=== PATIENT | female | born 1945 | race Hispanic/Latino ===

== ENCOUNTER 2017-05-04 16:47 | Emergency (ER) | payer MEDICARE ==
[2017-05-04 16:57] VITALS: BP 170/79; PULSE 88; RESP 18; TEMP 98.2; O2SAT 99
[2017-05-04] MEDS ORDERED: Lidocaine 1% w Epi 1:100,000 Inj INJ STA (17:09)
[2017-05-04] MEDS ORDERED: Lidocaine 2% w Epi 1:100,000 Inj IJ ONE (17:16)
--- NOTE | 2017-05-04 17:19 | ED PDOC ---
HPI: General Adult Time Seen by Provider: 05/04/17 17:00 Chief Complaint (Nursing): Abnormal Skin Integrity Chief Complaint (Provider): Laceration History Per: Patient History/Exam Limitations: no limitations Onset/Duration Of Symptoms: Hrs Current Symptoms Are (Timing): Still Present Additional Complaint(s): 71 y/o female presents to the emergency department with a laceration to left eyebrow region sustained when she fell onto the floor at home prior to arrival. Patient denies dizziness or syncope prior to fall and she did not sustain LOC as a result of fall. Patient does not take any blood thinners daily. She is not sure of last tetanus. PMD: Dr. Rajeev Godinez MD Past Medical History Reviewed: Historical Data, Nursing Documentation, Vital Signs Vital Signs: Last Vital Signs Temp 98.2 F 05/04/17 16:54 Pulse 88 05/04/17 16:54 Resp 18 05/04/17 16:54 BP 170/79 H 05/04/17 16:54 Pulse Ox 99 05/04/17 18:47 - Medical History PMH: No Chronic Diseases - Surgical History Other surgeries: hemicolectomy, lumpectomy x 2 from right breast, "others but I can't remember" - Family History Family History: States: No Known Family Hx - Living Arrangements Living Arrangements: With Family - Social History Current smoker - smoking cessation education provided: No Alcohol: Occasional (wine) Drugs: Denies - Immunization History Hx Tetanus Toxoid Vaccination: No (not sure of last booster) - Allergies Allergies/Adverse Reactions: Allergies Allergy/AdvReac Type Severity Reaction Status Date / Time Penicillins Allergy RASH Verified 05/04/17 16:58 Review of Systems ROS Statement: Except As Marked, All Systems Reviewed And Found Negative Skin: Positive for: Other (Laceration to the left eyebrow region) Neurological: Positive for: Other (denies dizziness or syncope prior to fall, denies LOC as result of fall) Physical Exam - Reviewed Nursing Documentation Reviewed: Yes Vital Signs Reviewed: Yes - Physical Exam Appears: Positive for: Well, Non-toxic, No Acute Distress Head Exam: Positive for: ATRAUMATIC, NORMAL INSPECTION, NORMOCEPHALIC Skin: Negative for: Rash Eye Exam: Positive for: Periorbital swelling (left), Periorbital tenderness ( left), Other (2 cm superficial laceration just inferior to left eyebrow with minimal active bleeding and moderate STS, slight ecchymosis noted to same area) Neck: Positive for: Normal, Painless ROM Cardiovascular/Chest: Positive for: Regular Rate, Rhythm Respiratory: Positive for: Normal Breath Sounds Neurologic/Psych: Positive for: Alert, wound nurse II-XII (grossly intact), Oriented (x3 ), Gait (steady). Negative for: Motor/Sensory Deficits, Aphasia, Facial Droop - ECG O2 Sat by Pulse Oximetry: 99 (RA) Pulse Ox Interpretation: Normal - Other Rad CT head and facial bones X-Ray: Read By Radiologist X-Ray Interpretation: see below Medical Decision Making Medical Decision Making: Time: 17:09 Initial Impression: 71 year old with head injury and facial laceration Initial Plan: --Lidocaine w/ Epi 10 ml INJ --Tetanus 0.5 ml IM --Lac repair. Patient agrees to lac repair by PA. She declined plastic surgery consult and is aware of potential for scarring. --Head CT --Maxillofacial w/o contrast CT Time: 18:32 --Head CT FINDINGS: Brain: Areas of decreased attenuation noted within the periventricular and subcortical white matter likely related to chronic microangiopathic ischemic changes given the patient's stated age.Streak artifact limits evaluation of the skull base. No evidence of acute intracranial hemorrhage. Correlate clinically. There is mild diffuse cerebral atrophy present , consistent with this patient's age.Subcutaneous soft tissue swelling/scalp hematoma is noted in the left supraorbital region. Ventricles: Unremarkable. No ventriculomegaly. Bones/joints: See above. Soft tissues: Unremarkable. Sinuses: Unremarkable as visualized. No acute sinusitis. Mastoid air cells: Unremarkable as visualized. No mastoid effusion. IMPRESSION: Streak artifact limits evaluation of the skull base. No evidence of acute intracranial hemorrhage. Correlate clinically. Subcutaneous soft tissue swelling/scalp hematoma is noted in the left supraorbital region. Facial bones CT: IMPRESSION: No acute facial bone fracture. Orbital wood are intact. Left periorbital soft tissue swelling. Mild left supraorbital soft tissue swelling. Patient aware of CT results. Wound care instructions given. Advised ice to affected area and Tylenol for pain as needed. Patient was instructed to follow up with her primary doctor in 1-2 days. Patient was given wound care instructions. Scribe Attestation: Documented by Raquel Guzmán, acting as a scribe for Enedina Cade PA-C. Provider Scribe Attestation: All medical record entries made by the Scribe were at my direction and personally dictated by me. I have reviewed the chart and agree that the record accurately reflects my personal performance of the history, physical exam, medical decision making, and the department course for this patient. I have also personally directed, reviewed, and agree with the discharge instructions and disposition. Procedures - Laceration/Wound Repair Left eyebrow region Wound Length (cm): 2 (to the left eyebrow region) Wound's Depth, Shape: superficial Wound Explored: clean Irrigated w/ Saline (ccs): 30 Betadine Prep?: Yes Anesthesia: Lidocaine w/ Epi Volume Anesthetic (ccs): 5 Wound Repaired With: Sutures Suture Size/Type: 5:0 (simple interrupted absorbable sutures) Number of Sutures: 3 Layer Closure?: No Wound Complexity: Simple Disposition - Clinical Impression Clinical Impression: Facial laceration, Head injury - Patient ED Disposition Is Patient to be Admitted: No Counseled Patient/Family Regarding: Studies Performed, Diagnosis, Need For Followup - Disposition Referrals: Rajeev Godinez MD [Staff Provider] - Disposition: Routine/Home Disposition Time: 18:52 Condition: STABLE Additional Instructions: Keep wound clean and dry. Apply Neosporin once per day. Stitches will dissolve on their own. Tylenol for pain. Ice affected area. Follow-up with primary doctor in 1-2 days. Instructions: Care For Your Absorbable Stitches (ED), Head Injury (ED), Facial Laceration (ED) Forms: [employer] (Indonesian)
[2017-05-04] MEDS ORDERED: Povidone Iodine Topical 10% Sol ONE (17:21)
[2017-05-04] MEDS ORDERED: Lidocaine 2% w Epi 1:200,000 Pf Inj IJ STA (17:56)
--- NOTE | 2017-05-05 06:53 | CT ---
PROCEDURE: CT HEAD WITHOUT CONTRAST. HISTORY: trauma COMPARISON: None available. TECHNIQUE: Axial computed tomography images were obtained through the head/brain without intravenous contrast. Radiation dose: Total exam DLP = 797.37 mGy-cm. This CT exam was performed using one or more of the following dose reduction techniques: Automated exposure control, adjustment of the mA and/or kV according to patient size, and/or use of iterative reconstruction technique. FINDINGS: HEMORRHAGE: No intracranial hemorrhage. BRAIN: Trace periventricular white matter lucency is appreciate compatible with chronic microangiopathy. Corticomedullary differentiation is well-preserved. No mass-effect is identified and there is no significant extra-axial fluid collection. Brainstem and cerebellum appear intact. VENTRICLES: Unremarkable. No hydrocephalus. CALVARIUM: No significant lytic or blastic change is identified and there is no displaced fracture identified including through the skullbase. Limited left supraorbital soft tissue edema/hematoma noted. PARANASAL SINUSES: Unremarkable as visualized. No significant inflammatory changes. MASTOID AIR CELLS: Unremarkable as visualized. No inflammatory changes. OTHER FINDINGS: None. IMPRESSION: 1. No acute intracranial findings. No displaced fracture identified. Limited left supraorbital soft tissue edema/hematoma noted. 2. Minimal age related neuro degenerative change. Concordant preliminary report from [facility], 05/04/2017.
--- NOTE | 2017-05-05 07:04 | CT ---
PROCEDURE: CT MAXILLOFACIAL BONES WITHOUT CONTRAST HISTORY: trauma COMPARISON: None TECHNIQUE: Contiguous axial CT images of the maxillofacial bones were obtained. Coronal and sagittal reformats were generated. Radiation dose: Total exam DLP = 699.60 mGy-cm. This CT exam was performed using one or more of the following dose reduction techniques: Automated exposure control, adjustment of the mA and/or kV according to patient size, and/or use of iterative reconstruction technique. FINDINGS: NASAL BONES: Unremarkable. ORBITS: Mild left periorbital/ supraorbital soft tissue edema is appreciated which is preseptal entirely. No postseptal changes are seen at the left orbit. The right orbit appears normal. No associated fractures bilaterally. PARANASAL SINUSES/ MASTOIDS: Clear. MAXILLA: Unremarkable. MANDIBLE/ TEMPOROMANDIBULAR JOINTS: Unremarkable. SKULL BASE: Unremarkable. TEMPORAL BONES: Middle ears and mastoid grossly unremarkable. OTHER FINDINGS: None. IMPRESSION: No fracture or suspicious lytic or blastic change throughout the facial bones. Mild left periorbital and supraorbital soft tissue is appreciated which is preseptal in location. No postseptal findings in either orbit. Right orbit appears normal.
== END 2017-05-04 19:15 | disposition home or self-care (01) ==
LOC: H.ER 16:47
DX: S01.112A Laceration without foreign body of left eyelid and periocular area, initial encounter (principal); W18.30XA Fall on same level, unspecified, initial encounter; Y92.009 Unspecified place in unspecified non-institutional (private) residence as the place of occurrence of the external cause

== ENCOUNTER 2017-12-01 23:45 | Emergency (ER) | payer MEDICARE ==
[2017-12-02 00:21] VITALS: BMI 21.2
[2017-12-02 00:25] VITALS: BP 148/73; PULSE 81; RESP 18; TEMP 98.1; O2SAT 99
--- NOTE | 2017-12-02 01:00 | ED PDOC ---
HPI: Trauma/Fall - HPI Time Seen by Provider: 12/02/17 00:24 Chief Complaint (Nursing): Trauma Chief Complaint (Provider): fall History Per: Patient History/Exam Limitations: no limitations Injury Occurred (Timing): Just Before Arrival Additional Complaint(s): 72 y/o female ambulates to ED for evaluation of fall prior to arrival. Patient states she was crossing the street in [place] and tripped, landed face forward and on left knee. Patient states she was wearing glasses and they broke. Denies LOC, dizziness, extremity numbness/weakness, vision changes, neck /back pain. Patient admits to having a few alcoholic beverages tonight. Patient states she is up to date on tetanus vaccine. Past Medical History Reviewed: Historical Data, Nursing Documentation, Vital Signs Vital Signs: Last Vital Signs Temp 98.1 F 12/02/17 00:22 Pulse 81 12/02/17 00:22 Resp 18 12/02/17 00:22 BP 148/73 12/02/17 00:22 Pulse Ox 99 12/02/17 00:22 - Medical History PMH: No Chronic Diseases - Family History Family History: States: Unknown Family Hx - Social History Current smoker - smoking cessation education provided: No Alcohol: Social - Immunization History Hx Tetanus Toxoid Vaccination: No (not sure of last booster) - Allergies Allergies/Adverse Reactions: Allergies Allergy/AdvReac Type Severity Reaction Status Date / Time Penicillins Allergy RASH Verified 12/02/17 00:22 Review of Systems ROS Statement: Except As Marked, All Systems Reviewed And Found Negative Skin: Positive for: Bruising, Other (facial abrasions, left knee abrasion) Physical Exam - Reviewed Nursing Documentation Reviewed: Yes Vital Signs Reviewed: Yes - Physical Exam Appears: Positive for: Well, Non-toxic, No Acute Distress Head Exam: Negative for: ATRAUMATIC (superficial "L" shape puncture wound/ laceration lateral to left eye; no active bleeding, surrounding edema or crepitus noted) Eye Exam: Positive for: EOMI, PERRL. Negative for: Periorbital swelling, Periorbital tenderness, Conjunctival injection ENT: Positive for: Normal ENT Inspection Cardiovascular/Chest: Positive for: Regular Rate, Rhythm Respiratory: Positive for: Normal Breath Sounds Extremity: Positive for: Normal ROM, Other (abrasion over left patella; FROM, distal NV/motor intact) Neurologic/Psych: Positive for: Alert, Oriented (x3), Gait (steady). Negative for: Motor/Sensory Deficits - ECG O2 Sat by Pulse Oximetry: 99 - Progress ED Course And Treament: CT head, CT facial, accucheck, PO tylenol, wound care Patient refusing left knee abrasion to be cleaned. Left facial laceration cleaned with NS, pressure dressing applied. Patient educated on plan for dermabond EXAM: CT Head Without Intravenous Contrast CLINICAL HISTORY: 72 years old, female; Injury or trauma; Fall; Initial encounter; Blunt trauma ( contusions or hematomas); Additional info: Head injury TECHNIQUE: Axial computed tomography images of the head/brain without intravenous contrast. All CT scans at this facility use one or more dose reduction techniques, viz.: automated exposure control; ma/kV adjustment per patient size (including targeted exams where dose is matched to indication; i.e. head); or iterative reconstruction technique. 309 images are submitted. Axial images are submitted in brain and bone windows. Coronal and sagittal reformatted images were created and reviewed. Axial reformatted images were created and reviewed. COMPARISON: CT - HEAD W/O CONTRAST 2017-05-04 17:58 FINDINGS: Brain: Cerebral and cerebellar volume loss. Patchy hypodensity is seen in the periventricular and subcortical white matter. No hemorrhage. Ventricles: Unremarkable. No ventriculomegaly. Bones/joints: Unremarkable. No acute fracture. Soft tissues: Unremarkable. Sinuses: Unremarkable. No acute sinusitis. Mastoid air cells: Unremarkable. No mastoid effusion. Globes and lens are intact. IMPRESSION: No evidence of an acute intracranial hemorrhage, midline shift or mass effect is identified. EXAM: CT Maxillofacial and mandible Without Intravenous Contrast CLINICAL HISTORY: 72 years old, female; Injury or trauma; Fall; Initial encounter; Blunt trauma ( contusions or hematomas); Orbit/periorbital; Left TECHNIQUE: Axial computed tomography images of the face and mandible without intravenous contrast. All CT scans at this facility use one or more dose reduction techniques, viz.: automated exposure control; ma/kV adjustment per patient size (including targeted exams where dose is matched to indication; i.e. head); or iterative reconstruction technique. 602 images are submitted.Sagittal , axial and coronal MPR reformatted images are submitted in soft tissue and bone windows. CT maxillofacial with mandible COMPARISON: CT - MAXILLOFACIAL W/O CONTRAST 2017-05-04 18:02 FINDINGS: Bones/joints: Left TMJ degenerative changes. No acute fracture. Soft tissues: Minimal left periorbital and facial soft tissue swelling. Orbits: The globe and lens are intact. Sinuses: Unremarkable. No air-fluid levels. IMPRESSION: No acute findings. Minimal left periorbital soft tissue swelling. On re-eval, patient no longer in exam room. Notified by RN that as patient was walking out of ED she was stating that she did not want to stay here any longer. Patient left ED before treatment completed. Disposition - Clinical Impression Clinical Impression: Facial laceration, Head injury - Patient ED Disposition Is Patient to be Admitted: No - Disposition Referrals: Rajeev Godinez MD [Primary Care Provider] - Disposition: Left W/O Treatment Disposition Time: 02:30 Condition: STABLE Forms: [employer] ([place]an)
--- NOTE | 2017-12-02 02:16 | CT ---
EXAM: CT Head Without Intravenous Contrast CLINICAL HISTORY: 72 years old, female; Injury or trauma; Fall; Initial encounter; Blunt trauma (contusions or hematomas); Additional info: Head injury TECHNIQUE: Axial computed tomography images of the head/brain without intravenous contrast. All CT scans at this facility use one or more dose reduction techniques, viz.: automated exposure control; ma/kV adjustment per patient size (including targeted exams where dose is matched to indication; i.e. head); or iterative reconstruction technique. 309 images are submitted. Axial images are submitted in brain and bone windows. Coronal and sagittal reformatted images were created and reviewed. Axial reformatted images were created and reviewed. COMPARISON: CT - HEAD W/O CONTRAST 2017-05-04 17:58 FINDINGS: Brain: Cerebral and cerebellar volume loss. Patchy hypodensity is seen in the periventricular and subcortical white matter. No hemorrhage. Ventricles: Unremarkable. No ventriculomegaly. Bones/joints: Unremarkable. No acute fracture. Soft tissues: Unremarkable. Sinuses: Unremarkable. No acute sinusitis. Mastoid air cells: Unremarkable. No mastoid effusion. Globes and lens are intact. IMPRESSION: No evidence of an acute intracranial hemorrhage, midline shift or mass effect is identified.
--- NOTE | 2017-12-02 02:19 | CT ---
EXAM: CT Maxillofacial and mandible Without Intravenous Contrast CLINICAL HISTORY: 72 years old, female; Injury or trauma; Fall; Initial encounter; Blunt trauma (contusions or hematomas); Orbit/periorbital; Left TECHNIQUE: Axial computed tomography images of the face and mandible without intravenous contrast. All CT scans at this facility use one or more dose reduction techniques, viz.: automated exposure control; ma/kV adjustment per patient size (including targeted exams where dose is matched to indication; i.e. head); or iterative reconstruction technique. 602 images are submitted.Sagittal , axial and coronal MPR reformatted images are submitted in soft tissue and bone windows. CT maxillofacial with mandible COMPARISON: CT - MAXILLOFACIAL W/O CONTRAST 2017-05-04 18:02 FINDINGS: Bones/joints: Left TMJ degenerative changes. No acute fracture. Soft tissues: Minimal left periorbital and facial soft tissue swelling. Orbits: The globe and lens are intact. Sinuses: Unremarkable. No air-fluid levels. IMPRESSION: No acute findings. Minimal left periorbital soft tissue swelling.
== END 2017-12-02 02:35 | disposition left against medical advice (07) ==
LOC: H.ER 23:45
DX: S09.90XA Unspecified injury of head, initial encounter (principal); S01.81XA Laceration without foreign body of other part of head, initial encounter; W19.XXXA Unspecified fall, initial encounter